=== PATIENT | female | born 1995 ===

== ENCOUNTER 2022-03-16 19:14 | Emergency (ER) ==
[2022-03-16] MEDS ORDERED: EPINEPHrine 1 MG/ML AMP ONE (19:49)
[2022-03-16] MEDS ORDERED: Famotidine/PF 20 mg/2ml Vial ONE (20:15)
[2022-03-16] MEDS ORDERED: methylPREDNISolone Sod Succ/PF 125 MG/2 ML VIAL ONE (20:15)
[2022-03-16] MEDS ORDERED: diphenhydrAMINE 50 MG/ML VIAL ONE (20:16)
== END 2022-03-16 21:27 | disposition home or self-care (01) ==
LOC: CSHERS 19:14
DX: T78.1XXA Other adverse food reactions, not elsewhere classified, initial encounter (principal)
CPT/HCPCS: 96374; 96375; J0171; J1200; J2930; S0028